=== PATIENT | female | born 1970 | race American Indian/Alaskan Native ===

== ENCOUNTER 2021-05-26 12:19 | Emergency (ER) | payer SELFPAY ==
--- NOTE | 2021-05-26 13:13 | Emergency Department Report ---
ED Recheck HPI - General Chief Complaint: Recheck/Abnormal Lab/Rx Stated Complaint: BLOOD TEST ? Time Seen by Provider: 05/26/21 13:01 Source: patient Mode of arrival: Ambulatory Limitations: No Limitations - History of Present Illness Initial Comments: Patient is a 50-year-old female presents emergency room with complaints of needing a check of her PT/INR. Patient is currently on Coumadin for pulmonary embolism. patient states that she is from [facility] and has not set up primary care. She reports that she was diagnosed with a pulmonary embolism and started on Coumadin by this hospital and she states that she presents today for check of her levels. She denies any physical complaints at this time. She denies any bleeding, hematochezia, melena. No allergies to medications - Related Data Previous Rx's Medication Instructions Recorded Last Taken Type Warfarin [Coumadin] 7.5 mg PO QDAY #30 tablet 05/26/21 Unknown Rx Allergies Allergy/AdvReac Type Severity Reaction Status Date / Time No Known Allergies Allergy Unverified 05/26/21 13:03 ED Review of Systems ROS: Stated complaint: BLOOD TEST ? Other details as noted in HPI Comment: All other systems reviewed and negative ED Past Medical Hx - Medications Home Medications: Home Medications Medication Instructions Recorded Confirmed Last Taken Type Warfarin [Coumadin] 7.5 mg PO QDAY #30 tablet 05/26/21 Unknown Rx ED Physical Exam - General Limitations: No Limitations General appearance: alert, in no apparent distress - Head Head exam: Present: atraumatic, normocephalic - Eye Eye exam: Present: normal appearance - ENT ENT exam: Present: mucous membranes moist - Respiratory Respiratory exam: Present: normal lung sounds bilaterally. Absent: respiratory distress, wheezes, rales, rhonchi, stridor, chest wall tenderness, accessory muscle use, decreased breath sounds, prolonged expiratory - Cardiovascular Cardiovascular Exam: Present: regular rate, normal rhythm, normal heart sounds. Absent: systolic murmur, diastolic murmur, rubs - Neurological Exam Neurological exam: Present: alert, oriented X3 - Psychiatric Psychiatric exam: Present: normal affect, normal mood - Skin Skin exam: Present: warm, dry, intact ED Course Vital Signs 05/26/21 05/26/21 13:00 14:47 Temperature 98.8 F 98.2 F Pulse Rate 78 78 Respiratory 18 16 Rate Blood Pressure 148/88 127/75 [Left] O2 Sat by Pulse 100 100 Oximetry ED Recheck MDM - Medical Decision Making Patient is a 50-year-old female presents emergency room with complaints of needing a check of her PT/INR. Patient is currently on Coumadin for pulmonary embolism. patient states that she is from [facility] and has not set up primary care. She reports that she was diagnosed with a pulmonary embolism and started on Coumadin by this hospital and she states that she presents today for check of her levels. She denies any physical complaints at this time. She denies any bleeding, hematochezia, melena. No allergies to medications. Vitals are stable. Patient's INR is 3.22. Discussed case with Dr. Lamonte Belle, ER attending who advised that this is appropriate and have patient follow-up with primary care. Patient states that she needs a refill of her Coumadin, she states that she takes 7.5 mg daily. advised patient Your levels are normal today. Please follow-up with a primary care doctor for continued monitoring of your PT/INR levels. Return to the emergency room immediately for any bleeding or blood in the stool. Critical care attestation.: If time is entered above; I have spent that time in minutes in the direct care of this critically ill patient, excluding procedure time. ED Disposition Clinical Impression: Monitoring for anticoagulant use, Medication refill Disposition: 01 HOME / SELF CARE / HOMELESS Is pt being admited?: No Does the pt Need Aspirin: No Condition: Stable Instructions: Bleeding Precautions When on Anticoagulant Therapy, Adult Additional Instructions: Your levels are normal today. Please follow-up with a primary care doctor for continued monitoring of your PT/INR levels. Return to the emergency room immediately for any bleeding or blood in the stool. Prescriptions: Warfarin [Coumadin] 7.5 mg PO QDAY #30 tablet Referrals: [facility] [Provider Group] - 2-3 Days VAMSI SMITH MD [Staff Physician] - 2-3 Days CARLA GUZMAN MD [Primary Care Provider] - 2-3 Days Time of Disposition: 14:26 Print Language: YORUBA
[2021-05-26 13:53] LABS: Basophils % (Auto) 0.9 % (0.0-1.8); Eosinophils # (Auto) 0.1 K/mm3 (0.0-0.4); Eosinophils % (Auto) 2.8 % (0.0-4.3); Lymphocytes # (Auto) 1.8 K/mm3 (1.2-5.4); Lymphocytes % (Auto) 42.7 % (13.4-35.0); Mean Corpuscular HGB Conc 30 % (30-34); Monocytes # (Auto) 0.5 K/mm3 (0.0-0.8); Monocytes % (Auto) 10.7 % (0.0-7.3); Platelet Count 360 K/mm3 (140-440); Red Blood Count 4.95 M/mm3 (3.65-5.03); Red Cell Distribution Width 18.7 % (13.2-15.2)
[2021-05-26 13:55] LABS: Hematocrit 34.4 % (30.3-42.9); Hemoglobin 10.3 gm/dl (10.1-14.3); Mean Corpuscular Volume 70 fl (79-97)
[2021-05-26 14:14] LABS: INR 3.22 (0.87-1.13)
[2021-05-26 14:15] LABS: Partial Thromboplastin Time 50.1 Sec. (24.2-36.6)
[2021-05-26 14:52] VITALS: BP 127/75
== END 2021-05-26 14:53 | disposition home or self-care (01) ==
LOC: ED 12:19
DX: I26.99 Other pulmonary embolism without acute cor pulmonale (principal); Z13.89 Encounter for screening for other disorder; Z76.0 Encounter for issue of repeat prescription
CPT/HCPCS: 36415; 85025; 85610; 85730; 99283